=== PATIENT | female | born 1960 | race Two or more races ===

== ENCOUNTER 2019-01-02 17:00 | Outpatient (AMBR) | payer MEDICAID, SELFPAY ==
--- NOTE | 2018-12-12 18:18 | PT.ODAYNRPT ---
PT Outpatient Daily Note Date of Service: December 12, 2018 OP Daily Note Visit Reasons: neck pain Outpatient Physical Therapy Treatment Date: 12/12/18 Subjective: Continued neck soreness about the same as last visit Objective: See F/S for therex MT: STM C/S extensors, manual distraction, HVT x1 L and R rotary C1-2 x7' total Assessment: High myofascial tension of R UQ with moderate tissue irritability with manual therapy today. Plan: Continue per POC Length of Time (minutes) of Treatment: 30 Minutes Office Procedures PT Procedures PT Date of Service: 12/12/18 Therapeutic Exercise 30 minutes: Yes
--- NOTE | 2018-12-17 17:23 | PT.ODAYNRPT ---
PT Outpatient Daily Note Date of Service: December 17, 2018 OP Daily Note Visit Reasons: neck pain Outpatient Physical Therapy Treatment Date: 12/17/18 Subjective: Continued neck soreness about the same as last visit Objective: See F/S for therex MT: STM C/S extensors, manual distraction, X 7' Mechanical traction C/S x7' at 15lbs Assessment: High myofascial tension of R UQ with moderate tissue irritability with manual therapy today. She has trigger points in R UT and cervical extensors on that side. Plan: Continue per POC Length of Time (minutes) of Treatment: 30 Minutes Office Procedures PT Procedures PT Date of Service: 12/12/18 Therapeutic Exercise 30 minutes: Yes PT Procedures PT Date of Service: 12/17/18 Therapeutic Exercise 30 minutes: Yes
--- NOTE | 2018-12-19 18:12 | PT.ODAYNRPT ---
PT Outpatient Daily Note Date of Service: December 19, 2018 OP Daily Note Visit Reasons: neck pain Outpatient Physical Therapy Treatment Date: 12/19/18 Subjective: A little less neck soreness since last visit Objective: See F/S for therex Mechanical traction C/S x7' at 15lbs Assessment: High myofascial tension of R UQ with moderate tissue irritability irritated by work duties. She has trigger points in R UT and cervical extensors on that side. Plan: Continue per POC Length of Time (minutes) of Treatment: 30 Minutes Office Procedures PT Procedures PT Date of Service: 12/12/18 Therapeutic Exercise 30 minutes: Yes PT Procedures PT Date of Service: 12/17/18 Therapeutic Exercise 30 minutes: Yes PT Procedures PT Date of Service: 12/19/18 Therapeutic Exercise 30 minutes: Yes
--- NOTE | 2018-12-24 19:01 | PT.ODAYNRPT ---
PT Outpatient Daily Note Date of Service: December 24, 2018 OP Daily Note Visit Reasons: neck pain Outpatient Physical Therapy Treatment Date: 12/24/18 Subjective: A little less neck soreness since last visit Objective: See F/S for therex MT: STM C/S extensors and R UQ x7' Assessment: High myofascial tension of R UQ with moderate tissue irritability irritated by work duties limits progress with goals. She has trigger points in R UT and cervical extensors on that side. Plan: Continue per POC Length of Time (minutes) of Treatment: 30 Minutes Office Procedures PT Procedures PT Date of Service: 12/12/18 Therapeutic Exercise 30 minutes: Yes PT Procedures PT Date of Service: 12/17/18 Therapeutic Exercise 30 minutes: Yes PT Procedures PT Date of Service: 12/19/18 Therapeutic Exercise 30 minutes: Yes PT Procedures PT Date of Service: 12/24/18 Therapeutic Exercise 30 minutes: Yes
--- NOTE | 2018-12-31 18:57 | PT.ODAYNRPT ---
PT Outpatient Daily Note Date of Service: December 31, 2018 OP Daily Note Visit Reasons: neck pain Outpatient Physical Therapy Treatment Date: 12/31/18 Subjective: A little less neck soreness since last visit, but overall about the same, temporary relief after therapy Objective: See F/S for therex MT: STM C/S extensors and R UQ x7' Assessment: High myofascial tension of R UQ with moderate tissue irritability irritated by work duties limits progress with goals. She has trigger points in R UT and cervical extensors on that side. Plan: Continue per POC Length of Time (minutes) of Treatment: 30 Minutes Office Procedures PT Procedures PT Date of Service: 12/12/18 Therapeutic Exercise 30 minutes: Yes PT Procedures PT Date of Service: 12/31/18 Therapeutic Exercise 30 minutes: Yes PT Procedures PT Date of Service: 12/17/18 Therapeutic Exercise 30 minutes: Yes PT Procedures PT Date of Service: 12/19/18 Therapeutic Exercise 30 minutes: Yes PT Procedures PT Date of Service: 12/24/18 Therapeutic Exercise 30 minutes: Yes
--- NOTE | 2019-01-02 17:53 | PT.ODAYNRPT ---
PT Outpatient Daily Note Date of Service: January 02, 2019 OP Daily Note Visit Reasons: neck pain Outpatient Physical Therapy Treatment Date: 01/02/19 Subjective: A little less neck soreness since last visit, but overall about the same, temporary relief after therapy Objective: See F/S for therex Mechanical traction C/S x7' Assessment: High myofascial tension of R UQ with moderate tissue irritability irritated by work duties limits progress with goals. She has trigger points in R UT and cervical extensors on that side. Plan: Continue per POC Length of Time (minutes) of Treatment: 30 Minutes Office Procedures PT Procedures PT Date of Service: 12/12/18 Therapeutic Exercise 30 minutes: Yes PT Procedures PT Date of Service: 12/31/18 Therapeutic Exercise 30 minutes: Yes PT Procedures PT Date of Service: 12/17/18 Therapeutic Exercise 30 minutes: Yes PT Procedures PT Date of Service: 12/19/18 Therapeutic Exercise 30 minutes: Yes PT Procedures PT Date of Service: 12/24/18 Therapeutic Exercise 30 minutes: Yes PT Procedures PT Date of Service: 01/02/19 Therapeutic Exercise 30 minutes: Yes
== END 2019-01-06 23:59 | disposition home or self-care (01) ==
PROVIDERS: PCP Podiatrist; Referring Provider Podiatrist; Visit Provider Internal Medicine Rheumatology
DX: M54.12 Radiculopathy, cervical region (principal); M54.5 Low back pain; G89.29 Other chronic pain
CPT/HCPCS: 97110

== ENCOUNTER 2024-02-17 13:34 | Emergency (ER) | payer MEDICAID, SELFPAY ==
[2024-02-17 14:16] VITALS: BP 131/85; PULSE 87; RESP 16; TEMP 36.9; O2SAT 98; BMI 29.8
--- NOTE | 2024-02-17 14:39 | XR_ITS ---
Examination: Abdomen AP single view Technique: AP portable supine abdomen, single view Exam date and time: February 17, 2024 1446 hrs. Indications: Onset lower abdominal pain today. Findings: Moderate air and stool throughout the colon No obstruction No free air Impression: Nonobstructive bowel gas pattern
--- NOTE | 2024-02-17 14:40 | PD.EDRME ---
Rapid Medical Screening Exam [facility] Arrival date/time: 02/17/24 13:34 63-year-old female with past medical history of diabetes and hypertension presents to the emergency department complaining of lower abdominal pain and constipation for several days. Chief Complaint: Abdominal Pain Vital signs: Vital Signs Temperature 98.4 F 02/17/24 14:16 Pulse Rate 87 02/17/24 14:16 Respiratory Rate 16 02/17/24 14:16 Blood Pressure 131/85 H 02/17/24 14:16 Pulse Oximetry (%) 98 02/17/24 14:16 Oxygen Delivery Method Room Air 02/17/24 14:16 Vital signs reviewed by provider: Yes
[2024-02-17 15:10] LABS: Collection Type, Urine Clean Catch
[2024-02-17 15:17] LABS: Basophils # (Auto) 0.1 Thou/mm3 (0.0-0.2); Basophils % (Auto) 1 % (0-2.5); Eosinophils # (Auto) 0.1 Thou/mm3 (0.0-0.5); Eosinophils % (Auto) 1 % (0-10); Hemoglobin 15.1 g/dL (12.0-16.0); Immature Granulocytes % (Auto) 0 % (0-0); Immature Granulocytes Auto 0.04 Thou/mm3 (0.00-0.00); Lymphocytes # (Auto) 2.5 Thou/mm3 (1.0-4.8); Lymphocytes % (Auto) 21 % (10-50); Mean Corpuscular HGB Conc 35.1 g/dl (31.0-37.0); Mean Corpuscular Hemoglobin 29.7 pg (25.0-35.0); Mean Corpuscular Volume 85 fL (80-100); Monocytes % (Auto) 9 % (0-12); Neutrophils # (Auto) 8.1 Thou/mm3 (1.8-7.7); Neutrophils % (Auto) 69 % (37-80); Nucleated Red Blood Cell % 0 /100 WBC (0); Platelet Count 231 Thou/mm3 (140-440); RDW Standard Deviation 41.2 fL (36.4-46.3); Red Blood Count 5.09 Miln/mm3 (4.00-5.20); White Blood Count 11.8 Thou/mm3 (3.6-11.0)
[2024-02-17 15:34] LABS: Alanine Aminotransferase 17 U/L (10-49); Albumin, Serum 4.6 gm/dL (3.4-4.8); Albumin/Globulin Ratio 1.5 (1.2-2.2); Alkaline Phosphatase 109 U/L (46-116); Anion Gap 6 (7-16); Aspartate Amino Transferase 17 U/L (0-34); BUN/Creatinine Ratio 15 Ratio (12-20); Bilirubin,Total 0.6 mg/dL (0.3-1.2); Blood Urea Nitrogen 15 mg/dL (9-23); Calcium 9.5 mg/dL (8.3-10.6); Calcium (Corrected) 9.5 mg/dL (8.5-10.1); Carbon Dioxide 24.4 mMol/L (20.0-31.0); Chloride 107 mMol/L (98-107); Estimated Creatinine Clearance 52.1 mL/min (>60); Glucose 231 mg/dL (74-106); Lipase 67 U/L (12-53); Osmolality,Calculated 281 (275-295); Potassium 3.8 mMol/L (3.4-5.1); Sodium 137 mMol/L (136-145); Total Protein 7.6 gm/dL (5.7-8.2); eGFR > 60 See Note
[2024-02-17 15:51] LABS: Bacteria,Urine 1+; Bilirubin,Urine Negative (Negative); Blood,Urine 1+ (Negative); Budding Yeast,Urine Present; Color,Urine Lt-Yellow (Lt Yel-Yel); Glucose, Urine 4+ (Negative); Ketones,Urine Negative (Negative); Nitrite,Urine Negative (Negative); Protein,Urine Negative (Neg - Trace); RBC,Urine 7 /hpf (0-3); Specific Gravity,Urine 1.032 (1.001-1.035); Squamous Epithelial Cell,Urine 8 /hpf (0-5); Urobilinogen,Urine Negative mg/dL (0.0-1.0); WBC,Urine 11 /hpf (0-5)
[2024-02-17 15:54] LABS: Clarity,Urine Hazy (Clear/Hazy); Culture Indicated,Urine Yes; Leukocyte Esterase,Urine 1+ (Negative)
--- NOTE | 2024-02-17 19:34 | EDNOTE_ITS ---
ED General RME/HPI General Chief complaint: Abdominal Pain Stated complaint: LOWER ABD PAIN, DYSURIA, CONSTIPATION Time Seen by Provider: 02/17/24 19:24 Arrival date/time: 02/17/24 13:34 CC: Constipation with a low abdominal pain onset approximately 2 hours ago patient states she is only been having small amount of hard stools for the past 2 days. Patient states she had a history of constipation 1 time 3+ years ago patient currently denies any fever chills chest pain shortness of breath or difficulty breathing. Localized pain is 5-6 on a 10 scale. RME / HPI RME / HPI narrative: 02/17/24 13:34 63-year-old female with past medical history of diabetes and hypertension presents to the emergency department complaining of lower abdominal pain and constipation for several days. Related Data Home Medications ?Medication ?Instructions ?Recorded ?Confirmed atenolol 50 mg tablet 50 mg PO DAILY 08/19/22 08/19/22 metformin 1,000 mg tablet 1,000 mg PO QDAY 08/19/22 08/19/22 Previous Rx's ?Medication ?Instructions ?Recorded hydrocodone 5 mg-acetaminophen 325 1 tab PO Q6H PRN pain #14 tabs 08/19/22 mg tablet ondansetron 4 mg disintegrating 4 mg PO Q6H PRN nausea and 08/19/22 tablet vomiting #30 tabs tamsulosin 0.4 mg capsule (Flomax) 0.4 mg PO QDAY #30 caps 08/19/22 peg 3350-electrolytes 236 240 ml PO Q10M PRN constipation 09/08/23 gram-22.74 gram-6.74 gram-5.86 #4,000 mL gram solution (Golytely) docusate calcium 240 mg capsule 240 mg PO QDAY #30 caps 02/17/24 magnesium citrate 300 ml PO QDAY PRN constipation 02/17/24 #300 mL meloxicam 7.5 mg tablet 7.5 mg PO QDAY #14 tabs 02/17/24 Allergies Allergy/AdvReac Type Severity Reaction Status Date / Time clarithromycin Allergy Severe Hives Verified 11/24/22 08:05 metronidazole [From Flagyl] Allergy Severe Hives Verified 11/24/22 08:05 Penicillins Allergy Severe Hives Verified 11/24/22 08:05 tramadol AdvReac Severe shaky Verified 11/24/22 08:05 vomiting Review of Systems Review of Systems Narrative Review of Systems: GEN: No fever, no chills, no weight loss EYES: No discharge, no visual changes, no pain HEENT: No ear pain, no congestion, no sore throat PULM: No shortness of breath, no cough, no congestion CV: No chest pain, no dyspnea on exertion, no palpitations GI: No nausea, no vomiting, no diarrhea, + pain, + constipation : No frequency, no urgency, no dysuria MUSC/SKEL: No joint pain, no back pain SKIN: No rash PSYCH: No hallucinations, no depression HEME/LYMPH: No easy bleeding or bruising tendencies NEURO: No weakness, no headache Past Medical History Past Medical History CARDIAC: Positive Hypercholesterolemia and Hypertension; Negative Cardiac Disorders or Congestive Heart Failure RESPIRATORY: Negative Chronic Obstructive Pulmonary Disease (COPD) or Asthma GENITOURINARY: Positive Kidney Stones (Possibly); Negative Renal Disease ENDOCRINE: Positive Diabetes Mellitus Type 2; Negative Diabetes Mellitus Type 1 HEMATOLOGIC: Negative Sickle Cell Disease OTHER HISTORY: Positive Blood Transfusions; Negative Anesthesia Reactions Surgical History SURGICAL: Positive Hysterectomy Social History SMOKING STATUS: Never smoker ED Exam Narrative Physical exam: [General: In mild discomfort but not in any acute distress Head normocephalic HEENT: Within acceptable limits Neck is supple nontender Chest equal chest rise nontender to palpation Respiratory: Clear to auscultation no wheezes crackles or rubs CV: Rate rhythm is regular no murmurs rubs or clicks Abdomen is distended secondary to body habitus soft tender in the low center, no upper abdominal pain with deep palpation no reflexive guarding or rebound tenderness. Back: No CVA tenderness no spinous process tenderness from cervical spine thoracic and lumbar spine Skin: Intact no petechiae rash induration ulceration or crepitus Extremities: Moving all extremity against resistance cap refill less than 2 seconds neurosensory intact. No lower extremity edema. Neuro: Awake alert oriented x3 Glascow coma 15 no focal deficits] Course Quality Measures none Orders Category Date Time Status XR abdomen 1V Stat Exams 02/17/24 14:39 Completed CBC Stat Lab 02/17/24 15:00 Completed CMP [Comprehensive Metabolic Panel] Stat Lab 02/17/24 15:00 Completed Lipase Stat Lab 02/17/24 15:00 Completed Urinalysis, C/S if Indicated Stat Lab 02/17/24 14:53 Completed Urine Culture Stat Lab 02/17/24 14:53 Received Ketorolac Inj [Toradol Inj] Med 02/17/24 19:33 Discontinued 15 mg IM X1 ONE Vital Signs Vital signs: Vital Signs Temperature 98.4 F 02/17/24 14:16 Pulse Rate 87 02/17/24 14:16 Respiratory Rate 16 02/17/24 14:16 Blood Pressure 131/85 H 02/17/24 14:16 Pulse Oximetry (%) 98 02/17/24 14:16 Oxygen Delivery Method Room Air 02/17/24 14:16 MDM Patient data External records reviewed:: [facility] previous records Clinical information provided by:: patient Social determinants that could affect healthcare access:: none Patient has the following chronic illnesses:: Hypertension How is presenting disease/condition affected by chronic disease/condition?: u neffected by Evaluation data The following diagnostics were reviewed and interpreted by me:: lab results and radiology exam(s) Lab and/or radiology exams considered but not ordered:: Imaging shows a copious amount of stool no other acute findings CBC shows no acute leukocytosis anemia thrombocytopenia CMP shows no acute electrolyte imbalances renal impairment transaminitis or T. bili elevation. Interpretation Summary: Constipation without ileus or obstruction. Medications Medications considered but not ordered:: None Medication administrations:: Medication Administration History Discontinued Medications Ketorolac Tromethamine (Ketorolac Inj 60 Mg/2 Ml Vial) 15 mg IM X1 ONE Stop: 02/17/24 19:34 Last Admin: 02/17/24 19:45 Dose: 15 mg Documented By: YUDY None Consultations Consultation(s) initiated? (list below): No Diagnosis Differential Diagnosis ED Complaint MDM: Constipation obstipation ileus Most likely diagnosis given after review of the tests above:: Constipation abdominal pain Admission Indicated Admission indicated?: not indicated Explain why admission is indicated or not indicated:: Stable for outpatient follow-up Admission Request Was there a request for admission?: No Disposition Plan Disposition Plan: Discharge Discharge Attestation Discharge Attestation: The patient and all family members were given an opportunity to ask questions and understood the discharge instructions. Discharge instructions specifically effects, indications for sooner follow up or return to the emergency department, and the expected course of current diagnosis. Patient condition: Stable Medical Decision Making Differential Diagnosis Differential Diagnosis: Constipation obstipation ileus Lab Data 02/17/24 15:00 02/17/24 15:00 Labs: Lab Results 02/17/24 02/17/24 Range/Units 14:53 15:00 WBC 11.8 H (3.6-11.0) Thou/mm3 RBC 5.09 (4.00-5.20) Miln/mm3 Hgb 15.1 (12.0-16.0) g/dL Hct 43.0 (36.0-46.0) % MCV 85 (80-100) fL MCH 29.7 (25.0-35.0) pg MCHC 35.1 (31.0-37.0) g/dl RDW Std Deviation 41.2 (36.4-46.3) fL Plt Count 231 (140-440) Thou/mm3 Neut % (Auto) 69 (37-80) % Lymph % (Auto) 21 (10-50) % [place] % (Auto) 9 (0-12) % Eos % (Auto) 1 (0-10) % Baso % (Auto) 1 (0-2.5) % Neut # (Auto) 8.1 H (1.8-7.7) Thou/mm3 Lymph # (Auto) 2.5 (1.0-4.8) Thou/mm3 [place] # (Auto) 1.0 H (0.0-0.8) Thou/mm3 Eos # (Auto) 0.1 (0.0-0.5) Thou/mm3 Baso # (Auto) 0.1 (0.0-0.2) Thou/mm3 Immature Gran # (Auto) 0.04 H (0.00-0.00) Thou/mm3 Absolute Nucleated RBC 0.00 (0.00-0.00) Thou/mm3 Immature Gran % 0 (0-0) % Nucleated RBC % 0 (0) /100 WBC Sodium 137 (136-145) mMol/L Potassium 3.8 (3.4-5.1) mMol/L Chloride 107 (98-107) mMol/L Carbon Dioxide 24.4 (20.0-31.0) mMol/L Anion Gap 6 L (7-16) BUN 15 (9-23) mg/dL Creatinine 1.0 (0.6-1.3) mg/dL Estim Creat Clear Calc 52.1 L (>60) mL/min eGFR > 60 (60 - ) See Note BUN/Creatinine Ratio 15 (12-20) Ratio Glucose 231 H (74-106) mg/dL Calculated Osmolality 281 (275-295) Calcium 9.5 (8.3-10.6) mg/dL Corrected Calcium 9.5 (8.5-10.1) mg/dL Total Bilirubin 0.6 (0.3-1.2) mg/dL AST 17 (0-34) U/L ALT 17 (10-49) U/L Alkaline Phosphatase 109 (46-116) U/L Total Protein 7.6 (5.7-8.2) gm/dL Albumin 4.6 (3.4-4.8) gm/dL Globulin 3.0 (2.3-3.5) gm/dL Albumin/Globulin Ratio 1.5 (1.2-2.2) Lipase 67 H (12-53) U/L Ur Collection Type Clean Catch Urine Color Lt-Yellow (Lt Yel-Yel) Urine Clarity Hazy (Clear/Hazy) Urine pH 6.0 (5.0-7.0) Ur Specific [place] 1.032 (1.001-1.035) Urine Protein Negative (Neg - Trace) Urine Glucose (UA) 4+ A (Negative) Urine Ketones Negative (Negative) Urine Blood 1+ A (Negative) Urine Nitrite Negative (Negative) Urine Bilirubin Negative (Negative) Urine Urobilinogen (Auto) Negative (0.0-1.0) mg/dL Ur Leukocyte Esterase 1+ A (Negative) Urine RBC 7 H (0-3) /hpf Urine WBC 11 H (0-5) /hpf Ur Squamous Epith Cells 8 H (0-5) /hpf Urine Bacteria 1+ A (None) Urine Yeast (Budding) Present A (None) Ur Culture Indicated? Yes Discharge Plan Plan Patient Disposition: HOME (Self Care) Prescriptions/Referrals Prescriptions/Med Rec: New docusate calcium 240 mg capsule 240 mg PO QDAY Qty: 30 0RF magnesium citrate Solution 300 ml PO QDAY PRN (Reason: constipation) Qty: 300 0RF meloxicam 7.5 mg tablet 7.5 mg PO QDAY Qty: 14 0RF No Action metformin 1,000 mg Tablet 1,000 mg PO QDAY atenolol 50 mg Tablet 50 mg PO DAILY tamsulosin [Flomax] 0.4 mg capsule 0.4 mg PO QDAY Qty: 30 0RF hydrocodone-acetaminophen 5-325 mg tablet 1 tab PO Q6H MDD 4 PRN (Reason: pain) Qty: 14 0RF ondansetron 4 mg tablet,disintegrating 4 mg PO Q6H PRN (Reason: nausea and vomiting) Qty: 30 0RF peg 3350-electrolytes [Golytely] 236-22.74-6.74 -5.86 gram recon soln 240 ml PO Q10M PRN (Reason: constipation) Qty: 4000 0RF Rx Instructions: until fecal effluent is clear Referrals: David Tay MD [Primary Care Provider] - In 1 week Problem List Clinical Impression: Abdominal pain, Constipation Patient/Caregiver Discharge Instructions Other Activity Instructions:: Take the pills as prescribed to help with constipation when you order picker the bottle of magnesium citrate drink 1 1:30 hour refrigeration wait 8 hours if you do not have a bowel movement drink the second 8 hours. If there is worsening of symptoms in spite of the medications return the emergency room medially for further evaluation. Education Materials: ED Constipation (Adult) Print Language: Urdu Stand Alone Forms: Kelly Award Info., Work/School Release, Patient Portal Info Letter Attestation MD Attestation The patient was seen by the midlevel practitioner. I, the co-signing physician, was present during the entire ER visit. While I did not physically examine the patient, I was available for consultation as needed.
[2024-02-17] MEDS: KETOROLAC INJ 60 MG/2 ML VIAL 15 MG IM (19:45)
[2024-02-17 19:46] VITALS: BP 145/67; PULSE 87; RESP 19; TEMP 37.1; O2SAT 99
== END 2024-02-17 19:46 | disposition home or self-care (01) ==
PROVIDERS: Emergency Provider Emergency Medicine; PCP Family Medicine
DX: K59.00 Constipation, unspecified (principal)
CPT/HCPCS: 36415; 74018; 80053; 81001; 83690; 85025; 87077; 87086; 87186; 96372; 99283; J1885